=== PATIENT | female | born 1970 | race Caucasian/White ===

== ENCOUNTER 2017-02-11 08:57 | Emergency (ER) | payer MEDICAID, OTHER ==
[~2017-02-11] VITALS: Ht 160 cm; Wt 82.0 kg
[~2017-02-11 08:57] MED LIST: HYDR-1348 PO
[2017-02-11] MEDS ORDERED: DICL75TA5 PO (09:10)
[2017-02-11] MEDS ORDERED: LEVO50TA8 PO (09:10)
[2017-02-11 09:59] LABS: BASOPHILS % 0.4 % (0.0-2.0); EOSINOPHILS % 4.8 % (0.0-5.0); HEMATOCRIT. 41.5 % (36.0-48.0); HEMOGLOBIN. 14.5 g/dL (12.0-16.0); LYMPHOCYTES % 17.6 % (20.0-50.0); MEAN CORPUSCULAR HEMOGLOBIN 31.9 pg (28.0-32.0); MEAN CORPUSCULAR VOLUME 91.2 fL (81.0-99.0); MEAN PLATELET VOLUME 10.3 fl (7.4-10.4); NEUTROPHILS % 72.2 % (40.0-76.0); PLATELET 254 x1000/uL (130-400); RED BLOOD CELL COUNT 4.55 mill/uL (4.2-5.4)
[2017-02-11 10:09] LABS: D-DIMER 0.57 mg/L FEU (<0.50); INR 1.1; PROTHROMBIN TIME 11.3 sec (9.4-11.6)
[2017-02-11 10:14] LABS: HCG SCREEN NEGATIVE
[2017-02-11 10:16] LABS: CARBON DIOXIDE 26 mEq/L (21-32); CHLORIDE 107 mEq/L (98-107); TROPONIN I < 0.02 ng/mL (0.00-0.04)
[2017-02-11 10:35] LABS: BG BASE EXCESS -0.4 mmol/L (-2.0-2.0); BG CARBOXYHEMOGLOBIN 0.7 % (0.5-1.5); BG DEOXYHEMOGLOBIN 4.7 % (0.0-5.0); BG FRACTION INSPIRED OXYGEN 21; BG HCO3 ACT 23.7 mmol/L (22.0-26.0); BG METHEMOGLOBIN 0.3 % (0.0-1.5); BG OXYGEN SATURATION 95.3 % (92.0-98.5); BG OXYHEMOGLOBIN 94.3 % (94.0-97.0); BG PCO2 37.4 mmHg (35.0-45.0); BG PO2 74.8 mmHg (75.0-100.0); BG SAMPLE SITE RIGHT BRACHIAL; BG VENT MODE ROOM AIR
[2017-02-11] MEDS ORDERED: POTASSIUM CHLORIDE 20MEQ TABLET SR PO ONE (13:45)
[2017-02-11] MEDS ORDERED: IOHEXOL-350 100 ML BOTTLE ONE (15:06)
[2017-02-11 16:57] VITALS: BP 157/33
== END 2017-02-11 16:57 | disposition home or self-care (01) ==
LOC: ER 09:08
DX: R07.89 Other chest pain (principal); R06.02 Shortness of breath; F17.210 Nicotine dependence, cigarettes, uncomplicated; E03.9 Hypothyroidism, unspecified; E87.6 Hypokalemia; E83.51 Hypocalcemia; Z90.49 Acquired absence of other specified parts of digestive tract
CPT/HCPCS: 36415; 36600; 71010; 71275; 80053; 82375; 82805; 83880; 84484; 84703; 85025; 85379; 85610; 93005; 99285; Q9967; Z7610

== ENCOUNTER 2021-08-27 02:30 | Emergency (ER) | payer OTHER ==
[~2021-08-27] VITALS: Ht 157.5 cm; Wt 92.9 kg
[~2021-08-27 02:30] MED LIST changes: +DICL75TA5 PO; +LEVO50TA8 PO
[2021-08-27] MEDS ORDERED: AMOX-424 MT (06:16)
[2021-08-27 06:30] VITALS: BP 157/92
[2021-08-27] MEDS ORDERED: IBUPROFEN 400MG TABLET PO ONE (06:30)
== END 2021-08-27 07:00 | disposition home or self-care (01) ==
LOC: ER 02:30
DX: H66.92 Otitis media, unspecified, left ear (principal); Z90.49 Acquired absence of other specified parts of digestive tract
CPT/HCPCS: 99282; 99283

== ENCOUNTER 2024-09-19 23:58 | Emergency (ER) | payer OTHER ==
[~2024-09-19] VITALS: Ht 157.5 cm; Wt 66.0 kg
[~2024-09-19 23:58] MED LIST changes: +AMOX-424 MT
[2024-09-20 00:08] VITALS: O2SAT 100
[2024-09-20 00:58] VITALS: BP 162/64; PULSE 61; RESP 18; TEMP 36.7; O2SAT 100
[2024-09-20] MEDS ORDERED: AMOX1TAB16 MT (02:50)
== END 2024-09-20 03:08 | disposition home or self-care (01) ==
LOC: ER 09-20 00:15
DX: M79.675 Pain in left toe(s) (principal); M79.674 Pain in right toe(s); F10.90 Alcohol use, unspecified, uncomplicated; Z79.899 Other long term (current) drug therapy; Z79.890 Hormone replacement therapy; Y90.9 Presence of alcohol in blood, level not specified
CPT/HCPCS: 99283

== ENCOUNTER 2024-09-21 21:58 | Emergency (ER) | payer OTHER ==
[~2024-09-21] VITALS: Ht 157.5 cm; Wt 66.0 kg
[~2024-09-21 21:58] MED LIST changes: +AMOX1TAB16 MT
[2024-09-21 22:20] VITALS: TEMP 36.7; O2SAT 100
[2024-09-22] MEDS: BACITRACIN ZINC OINT UDPKT TOP ONE
[2024-09-22] MEDS ORDERED: BO1 TP (01:40)
[2024-09-22] MEDS ORDERED: AMOX1TAB16 MT (01:40)
[2024-09-22 02:09] VITALS: BP 142/82; PULSE 68; RESP 16; O2SAT 100
== END 2024-09-22 02:09 | disposition home or self-care (01) ==
LOC: ER 21:58
DX: L03.031 Cellulitis of right toe (principal); L03.032 Cellulitis of left toe; Z79.890 Hormone replacement therapy; Z79.899 Other long term (current) drug therapy
CPT/HCPCS: 10061; 99284; Z7610; 99283